=== PATIENT | male | born 1960 | race Caucasian/White ===

== ENCOUNTER 2017-04-08 10:24 | Inpatient (IN) | payer BC ==
[2017-04-08] MEDS ORDERED: ATORVASTATIN 80 MG TAB PO STA (10:41)
[2017-04-08] MEDS ORDERED: ASPIRIN 81 MG PO STA (10:41)
[2017-04-08] MEDS ORDERED: HEPARIN SODIUM,PORCINE 5,000 UNIT/ML 1 ML VIAL IV STA (10:41)
--- NOTE | 2017-04-08 10:45 | ED ---
General Adult HPI - General Chief complaint: Chest Pain Stated complaint: Chest pain Time Seen by Provider: 04/08/17 10:39 Source: patient, family, RN notes reviewed Mode of arrival: wheelchair Limitations: no limitations - History of Present Illness Initial comments: 56-year-old male presenting with chest pain and pressure which began at approximately 8 AM this morning. Patient has history of coronary artery disease status post stenting approximately 10 years ago. Has a family history of coronary artery disease. He is a nonsmoker. Past medical history of hypertension and cholesterol. Pain is nonradiating. He does have some numbness and tingling in his arms bilaterally. No abdominal pain. No vomiting. Patient has had cough and congestion for the past several days. He took an aspirin and 2 sublingual nitro at home prior to arrival. - Related Data Home Medications Medication Instructions Recorded Confirmed Aspirin EC [Ecotrin] 325 mg PO DAILY 04/08/17 04/08/17 Allergies Allergy/AdvReac Type Severity Reaction Status Date / Time lisinopril AdvReac Cough Verified 04/08/17 10:40 Review of Systems ROS Statement: Those systems with pertinent positive or pertinent negative responses have been documented in the HPI. ROS Other: All systems not noted in ROS Statement are negative. Past Medical History Past Medical History: Hyperlipidemia, Hypertension History of Any Multi-Drug Resistant Organisms: None Reported Past Surgical History: Heart Catheterization With Stent, Orthopedic Surgery Past Psychological History: No Psychological Hx Reported Smoking Status: Never smoker Past Alcohol Use History: None Reported Past Drug Use History: None Reported General Exam Limitations: no limitations General appearance: alert, in no apparent distress Head exam: Present: atraumatic, normocephalic Eye exam: Present: normal appearance, PERRL ENT exam: Present: normal exam Neck exam: Present: normal inspection. Absent: tenderness, meningismus Respiratory exam: Present: normal lung sounds bilaterally. Absent: respiratory distress Cardiovascular Exam: Present: regular rate, normal rhythm GI/Abdominal exam: Present: soft. Absent: distended, tenderness Extremities exam: Present: normal inspection, normal capillary refill, other ( Bilateral DP pulses 2+). Absent: pedal edema Neurological exam: Present: alert, oriented X3, CN II-XII intact. Absent: motor sensory deficit Psychiatric exam: Present: normal affect, normal mood Skin exam: Present: warm, dry, intact. Absent: cyanosis, diaphoretic Course Vital Signs 04/08/17 04/08/17 10:27 10:40 Temperature 97.9 F Pulse Rate 82 92 Respiratory 16 18 Rate Blood Pressure 150/76 154/92 O2 Sat by Pulse 100 100 Oximetry EKG Findings - EKG Comments: EKG Findings:: EKG shows sinus rhythm with PAC, ventricular rate 73, NC interval 140, castration 106, QTC 431, there is ST segment elevation in leads 23 and aVF as well as ST segment depression in the precordial leads, and aVL. Medical Decision Making - Medical Decision Making 56-year-old male presenting with typical chest pain, history of CAD EKG shows inferior STEMI. Case discussed with Dr. Gifford. Patient is taken urgently to the [facility] after receiving aspirin and heparin in the emergency department. All labs and x-rays are pending. Disposition Clinical Impression: ST elevation myocardial infarction (STEMI) Disposition: ADMITTED IP TO THIS [facility] Condition: Serious Referrals: Nonstaff,Physician [Primary Care Provider] - 1-2 days Decision to Admit Reason: Admit from [facility] Decision Date: 04/08/17 Decision Time: 10:45
[2017-04-08] MEDS ORDERED: SODIUM CHLORIDE 0.9% 1,000 ML IV ONE (10:54)
[2017-04-08 10:59] LABS: ALT 52 U/L (21-72); AST 27 U/L (17-59); Albumin 4.5 g/dL (3.5-5.0); Alkaline Phosphatase 75 U/L (38-126); Anion Gap 13 mmol/L; Blood Urea Nitrogen 15 mg/dL (9-20); Carbon Dioxide 22 mmol/L (22-30); Chloride 103 mmol/L (98-107); Glucose 106 mg/dL (74-99); Potassium 3.5 mmol/L (3.5-5.1); Sodium 138 mmol/L (137-145); Total Bilirubin 0.8 mg/dL (0.2-1.3); Total Protein 7.2 g/dL (6.3-8.2)
[2017-04-08] MEDS ORDERED: fentaNYL (PF) 50 MCG/ML 2 ML AMP IV ONE (11:00)
[2017-04-08] MEDS ORDERED: LIDOCAINE 2% INJ 20 MG/ML SQ ONE (11:01)
--- NOTE | 2017-04-08 11:03 | XR ---
EXAMINATION TYPE: XR chest 1V portable DATE OF EXAM: 04/08/2017 COMPARISON: NONE HISTORY: Chest pain TECHNIQUE: Single frontal view of the chest is obtained. FINDINGS: There is no focal air space opacity, pleural effusion, or pneumothorax seen. The cardiac silhouette size is within normal limits. The osseous structures are intact. IMPRESSION: No acute cardiopulmonary process.
[2017-04-08 11:07] LABS: INR 1.1 (<1.2); Partial Thromboplastin Time 23.3 sec (22.0-30.0); Prothrombin Time 10.8 sec (9.0-12.0)
[2017-04-08] MEDS ORDERED: BIVALIRUDIN BOLUS 250 MG/50 ML IV ONE ×2 (11:11)
[2017-04-08] MEDS ORDERED: TICAGRELOR 90 MG TAB PO ONE (11:12)
[2017-04-08] MEDS ORDERED: BIVALIRUDIN 250 MG in SODIUM CHLORIDE 0.9% 50 ML IV ONE (11:12)
[2017-04-08] MEDS ORDERED: NITROGLYCERIN 1000MCG/10ML SYRINGE INTRACORON ONE (11:15)
[2017-04-08] MEDS ORDERED: MIDAZOLAM 2 MG/2 ML VIAL IV ONE (11:17)
[2017-04-08 11:20] LABS: Creatine Kinase MB 1.1 ng/mL (0.0-2.4); Troponin I 0.028 ng/mL (0.000-0.034)
[2017-04-08 11:28] LABS: HCT 45.5 % (39.0-53.0); HGB 16.1 gm/dL (13.0-17.5); MCH 31.6 pg (25.0-35.0); MCHC 35.3 g/dL (31.0-37.0); MCV 89.5 fL (80.0-100.0); Platelet Count 314 k/uL (150-450); RBC 5.09 m/uL (4.30-5.90); RDW 12.3 % (11.5-15.5); WBC 10.4 k/uL (3.8-10.6)
--- NOTE | 2017-04-08 11:32 | CONS ---
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 The patient has underwent stenting of his diagonal branch in 2004 in [place]. At that time, he did not have any symptoms of chest discomfort. His activity level usually is stable, but recently he has had bronchitis. He has no dizziness. No palpitation. No syncope. No PND, orthopnea, or peripheral edema. His coronary risk factors are remarkable for hyperlipidemia. He is a nonsmoker. No family history of premature coronary artery disease. He is hypertensive. His medications at home include aspirin, Crestor, and Lopressor. REVIEW OF SYSTEMS: RESPIRATORY SYSTEM: He has the recent bronchitis. No recent fever. He has no history of bronchial asthma. GI SYSTEM: No recent GI bleed. No peptic ulcer disease. SYSTEM: No dysuria or hematuria. NERVOUS SYSTEM: No history of stroke or seizure. PHYSICAL EXAMINATION: He is a 56-year-old male, alert, oriented, in mild discomfort. Blood pressure 130/70 with the heart rate in 70s. HEAD: Normocephalic. EYES: Sclerae anicteric. NECK: Good carotid upstroke. No bruit. No jugular venous distention. LUNGS: Clear to auscultation. HEART: Regular rate and rhythm. S1, S2. No S3. No rub. ABDOMEN: Soft, nontender. Positive bowel sounds. No organomegaly. EXTREMITIES: No edema. Intact distal pulses. LAB DATA: EKG revealed sinus mechanism, rate [address]-segment elevation in the inferior leads. IMPRESSION: 1. Acute inferior myocardial infarction. 2. History of prior stenting of the diagonal branch. 3. History of hyperlipidemia. RECOMMENDATION: I recommend to proceed with emergent cardiac catheterization. The procedure as well as the risks and complications were discussed with the patient who is in full understanding and agreement. Thank you for this consult. We will follow with you. MMODL / IJN: [id number] /
[2017-04-08] MEDS ORDERED: IOHEXOL 350 MG/ML 125ML BOTTLE INJ ONE (11:38)
[2017-04-08] MEDS ORDERED: ATROPINE SULFATE 0.1 MG/ML 10ML SYRINGE IV PRN (11:50)
[2017-04-08] MEDS ORDERED: NITROGLYCERIN SL TABS 0.4 MG TAB SUBLINGUAL PRN (11:50)
[2017-04-08] MEDS ORDERED: MAG HYDROX/AL HYDROX/SIMETH 30 ML CUP PO PRN (11:50)
[2017-04-08] MEDS ORDERED: RX INFO: IV CONTRAST WAS GIVEN 1 EACH MISC MISCELLANE PRN (11:50)
[2017-04-08 11:52] LABS: Eosinophils # (M) 0.21 k/uL (0-0.7); Lymphocytes # (M) 4.06 k/uL (1.0-4.8); Monocytes # (M) 0.62 k/uL (0-1.0); Neutrophils # (M) 5.51 k/uL (1.3-7.7); Neutrophils % (M) 53 %; Nucleated Red Blood Cells 0 /100 WBC (0-0); Total Cells Counted 100
[2017-04-08] MEDS ORDERED: SODIUM CHLORIDE 0.9% 1,000 ML IV SCH (12:00)
[2017-04-08 12:04] LABS: Glucose,Whole Blood 91 mg/dL (75-99)
--- NOTE | 2017-04-08 12:29 | CC ---
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 He came into the emergency room and his EKG was consistent with an inferior wall myocardial infarction. In view of that, recommendation made regarding cardiac catheterization, the procedure as well as the risks and complication were discussed with the patient who is in full understanding and agreement. PROCEDURE: The patient was brought to warehouse general laborer in a fasting semi-sedated state after receiving fentanyl and Benadryl and achieving moderate conscious sedated state. Using Xylocaine anesthesia in the Seldinger technique, a 6-Scottish sheath was introduced in the right femoral artery. Selective right and left angiography were performed using 6-Scottish 4 bend right [place] catheter and 6-Scottish FR4 guiding catheter. Images of the coronary arteries including hemiaxial were obtained. Following that, angioplasty and stenting of the right coronary artery was performed. Following that, a 6-Scottish tight pigtail catheter introduced into the left ventricle and a 30-degree WLECH view of the left ventricle was obtained. Following that, catheter and sheaths were removed. Hemostasis was obtained with deployment of an Angio-Seal. There was no immediate complication. Patient is returned to his room in stable condition. FINDINGS: LEFT MAIN: This is a large-sized vessel bifurcating in the left circumflex and left anterior descending artery. Left main coronary artery distally has a 40% to 50% plaque. The rest of the vessel has no high-degree stenosis. LEFT ANTERIOR DESCENDING ARTERY: This is a large-sized vessel reaching toward the apex with a wraparound apex segment. It gives rise to a large diagonal branch proximally. The diagonal branch is stented. There is intimal disease involving the proximal takeoff of diagonal branch and extending into the stent with area of stenosis up to 80%. The rest of the vessel has no high-grade stenosis. The LAD has mild plaque with area of stenosis of 30% to 40% proximally without any evidence of high-grade stenosis. LEFT CIRCUMFLEX: This is a nondominant vessel giving rise to 2 obtuse marginal branches. The first one is the largest in caliber. The left circumflex obtuse marginal branch proximally has a plaque of 95% stenosis. There is a mild intimal disease in the circumflex beyond that. RIGHT CORONARY ARTERY: This is a large dominant vessel bifurcating in the PDA, posterolateral segment and branches. The right coronary artery proximally has an area of stenosis about 90%. Diffuse intimal disease throughout the course of the vessel and prior to the bifurcation, there is a long plaque extending into the PDA with rare stenosis of 99%. The rest of the vessel has diffuse disease. LEFT VENTRICULOGRAM: Left ventriculogram is performed in 30-degree WELCH view and revealed mild inferobasal hypokinesis. Ejection fraction is estimated at 50%. There was no significant mitral regurgitation. HEMODYNAMICS: There was no gradient across the aortic valve. The left ventricular end- diastolic pressure was 26 mmHg. CONCLUSION: 1. Subtotally occluded distal right coronary artery with significant stenosis in the proximal right coronary artery. 2. Moderate disease in the distal left main. 3. Significant disease in the first obtuse marginal branch. 4. Significant restenosis into the diagonal branch. 5. Minimally impaired left ventricular systolic function. RECOMMENDATION: In view of finding anatomy, I have recommended proceeding with angioplasty and stenting of the right coronary artery. The procedure as well as the risks and the complications were discussed with the patient who is in full understanding and agreement. MMODL / IJN: [id number] /
--- NOTE | 2017-04-08 12:32 | PTCA ---
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 In view of that, recommendation was made regarding coronary angioplasty and stenting. The procedure as well as risks and complications were discussed with the patient who is in full understanding and agreement. PROCEDURE: Using the 6-Eritrean FR4 guiding catheter, a 0.014 balanced medium weight J-wire was advanced across the lesion, positioned distally. Then a 2.25 x 12 mm Trek balloon was advanced and multiple inflation were done distally and one inflation in the proximal segment. Following that, the balloon was removed and a 2.5 x 18 mm Xience Alpine stent was deployed into the distal right coronary artery extending into the PDA and post dilated at 12 atmospheres. Following that, the balloon was removed and a 3.0 x 15 mm Xience Alpine stent was deployed proximal to the first stent and post dilated at 14 atmospheres. Following that, the balloon was removed and a 2.75 x 12 mm Trek balloon was advanced and inflation into the distal stent was performed. Following that, the balloon was removed and a 3.5 x 18 mm Xience Alpine stent was deployed proximally and post dilated at 16 atmospheres. After the last inflation, after appropriate wait, the balloon and the guidewire were withdrawn back in the guiding catheter. Images were obtained and repeated. Those images reveal stable successful stenting. At that point, the guiding catheter, the balloon and the guidewire were removed and a 6-Eritrean tight pigtail catheter was left ventricle and a 30-degree WELCH view of the left ventricle was obtained. Following that, the catheter and sheath were removed. Hemostasis was obtained with deployment of an Angio-Seal. There was no immediate complication. Patient is returned to his room in stable condition. Of note, the patient received Angiomax per protocol as well as oral loading dose of Brilinta. His pain has resolved at the end of the procedure and there was no significant EKG changes. RESULTS: 1. Successful stenting of the distal right coronary artery with reduction of stenosis from 99% to 0%. 2. Successful stenting of the proximal right coronary artery with reduction of stenosis from 90% to less than 5%. RECOMMENDATION: Patient will be continued on aspirin, Brilinta, beta blockers, angiotensin receptor eileen and statin. The importance of dual antiplatelet treatment were discussed with the patient and his family who are in full understanding and agreement. The patient will need to be re-evaluated at a later time by his physician in [place] regarding the need to undergo revascularization of his left circumflex and probably diagonal branch. Those findings and recommendations were discussed with the patient and his family. Duration of procedure is 45 minutes. MMVERONICA / IJN: [id number] /
[2017-04-08] MEDS: METOPROLOL TARTRATE 25 MG TAB PO SCH ×2 (12:53→20:06)
[2017-04-08] MEDS ORDERED: Potassium Replacement Protocol 1 EACH MISC MISCELLANE PRN (13:51)
[2017-04-08] MEDS: POTASSIUM CHLORIDE ER 20 MEQ TAB.ER PO SCH ×2 (14:09→15:00)
[2017-04-08 15:15] VITALS: BMI 24.4
[2017-04-08] MEDS: ATORVASTATIN 80 MG TAB PO SCH (20:06)
[2017-04-08] MEDS: TICAGRELOR 90 MG TAB PO SCH (20:06)
[2017-04-08] MEDS: ZOLPIDEM 5 MG TAB PO PRN (23:30)
[2017-04-09 05:29] LABS: Anion Gap 11 mmol/L; Blood Urea Nitrogen 13 mg/dL (9-20); Calcium 9.2 mg/dL (8.4-10.2); Carbon Dioxide 22 mmol/L (22-30); Chloride 108 mmol/L (98-107); Cholesterol 81 mg/dL (<200); Glucose 96 mg/dL (74-99); HDL Cholesterol 25 mg/dL (40-60); LDL Cholesterol,Calculated 42 mg/dL (0-99); Potassium 4.4 mmol/L (3.5-5.1); Sodium 141 mmol/L (137-145); Triglycerides 70 mg/dL (<150)
[2017-04-09] MEDS: TICAGRELOR 90 MG TAB PO SCH ×2 (08:56→20:29)
[2017-04-09] MEDS: ASPIRIN 81 MG PO SCH (08:56)
[2017-04-09] MEDS: METOPROLOL TARTRATE 25 MG TAB PO SCH ×2 (08:56→20:29)
[2017-04-09] MEDS: LOSARTAN 50 MG TAB PO SCH (08:58)
--- NOTE | 2017-04-09 10:39 | CONS ---
CONSULTATION DATE OF CONSULTATION: 04/09/2017 HISTORY: Mr. Bey is a 56-year-old male who presented with an acute inferior wall myocardial infarction. Underwent cardiac catheterization and stenting of the right coronary artery. He is pain-free this morning. He denies any chest pain. His breathing is stable. No dizziness. No palpitation. He continued to be in sinus mechanism without any evidence of tachy or lowell arrhythmia. He continued to be on aspirin once a day, Brilinta 80 mg twice a day, Lipitor 80 mg daily, losartan 50 mg daily, metoprolol tartrate 25 mg twice a day. PHYSICAL EXAMINATION: Blood pressure 131/80 with a heart in the 70s. LUNGS: Clear heart exam S1, S2. No S3. No rub. ABDOMEN: Soft, nontender. EXTREMITIES: No edema. Right groin no hematoma. LAB DATA: Lab data revealed BUN and creatinine 13 and 0.8. His troponin is up to 5.1. His EKG revealed evidence of inferior wall myocardial infarction. IMPRESSION: 1. Status post stenting of the right coronary artery. 2. Diffuse coronary disease. 3. Hypertension. 4. Hyperlipidemia. RECOMMENDATIONS: From the cardiac standpoint, he will be transferred to telemetry floor today. His level of activity will be increased. Depending on his progress, further recommendations will be made. MMODL / IJN: [id number] /
[2017-04-09] MEDS ORDERED: ACETAMINOPHEN TAB 325 MG TAB PO PRN (15:10)
[2017-04-09] MEDS: ATORVASTATIN 80 MG TAB PO SCH (20:29)
[2017-04-09] MEDS: guaiFENesin-DM 100-10MG/5ML 10 ML CUP PO PRN (21:18)
[2017-04-09] MEDS: ZOLPIDEM 5 MG TAB PO PRN (23:28)
[2017-04-10 03:46] VITALS: RESP 16
[2017-04-10 06:34] LABS: Anion Gap 10 mmol/L; Blood Urea Nitrogen 18 mg/dL (9-20); Calcium 9.3 mg/dL (8.4-10.2); Carbon Dioxide 25 mmol/L (22-30); Chloride 106 mmol/L (98-107); Glucose 98 mg/dL (74-99); Potassium 4.3 mmol/L (3.5-5.1); Sodium 141 mmol/L (137-145)
[2017-04-10] MEDS: TICAGRELOR 90 MG TAB PO SCH (08:33)
[2017-04-10] MEDS: METOPROLOL TARTRATE 25 MG TAB PO SCH (08:33)
[2017-04-10] MEDS: ASPIRIN 81 MG PO SCH (08:33)
[2017-04-10] MEDS: LOSARTAN 50 MG TAB PO SCH (08:33)
[2017-04-10] MEDS: guaiFENesin-DM 100-10MG/5ML 10 ML CUP PO PRN (08:59)
--- NOTE | 2017-04-10 09:31 | PN ---
PROGRESS NOTE [place] is a 56-year-old male who presented with an acute inferior myocardial infarction, underwent angioplasty and stenting of the right coronary artery, has disease in the left coronary system. He is doing well this morning. He is denying any chest pain. His breathing has been stable. He denies any dizziness or palpitation. He denies any syncope. Continues to be on aspirin once a day, Lipitor 80 mg daily, losartan 50 mg daily, metoprolol tartrate 25 mg twice a day, Brilinta 90 mg twice a day. PHYSICAL EXAMINATION: Blood pressure 110/60 with a heart rate in the 60s. LUNGS: Clear. Regular rate and rhythm, S1, S2. No S3. No rub. ABDOMEN: Soft, nontender. EXTREMITIES: No edema. LAB DATA: BUN and creatinine of 18 and 0.9. IMPRESSION: 1. Status post inferior myocardial infarction with stenting of the right coronary artery. 2. Coronary artery disease involving the diagonal branch and the left circumflex. 3. History of hypertension. 4. Hyperlipidemia. RECOMMENDATIONS: From the cardiac standpoint, he should be able to be discharged home today and follow up with his primary care physician and follow up in [place]. MMODL / IJN: [id number] /
[2017-04-10 10:04] VITALS: BP 125/79; PULSE 69; TEMP 96.4
--- NOTE | 2017-04-11 08:46 | ECHOF ---
Referral Reason:mi MEASUREMENTS -------- HEIGHT: 182.9 cm WEIGHT: 81.7 kg BP: 114/71 IVSd: 1.4 cm (0.6 - 1.1) LVIDd: 3.2 cm (3.9 - 5.3) LVPWd: 1.3 cm (0.6 - 1.1) IVSs: 1.8 cm LVIDs: 1.8 cm LVPWs: 2.3 cm Ao Diam: 3.4 cm (2.0 - 3.7) AV Cusp: 1.6 cm (1.5 - 2.6) LA Diam: 2.7 cm (2.7 - 3.8) MV EXCURSION: 19.783 mm (> 18.000) MV EF SLOPE: 109 mm/s (70 - 150) EPSS: 0.9 cm MV E Dom: 0.69 m/s MV DecT: 182 ms MV A Dom: 0.50 m/s MV E/A Ratio: 1.38 RAP: 5.00 mmHg RVSP: 9.86 mmHg FINDINGS -------- Sinus rhythm. Patient is post cardiac catheterization and cannot be in left lateral position. The left ventricular size is normal. There is mild concentric left ventricular hypertrophy. Overa ll left ventricular systolic function is normal with, an EF between 55 - 60 %. The right ventricle is normal in size and function. The left atrium is normal in size. The right atrium is normal in size. The aortic valve is trileaflet, and appears structurally normal. No aortic stenosis or regurgitation. There is trace mitral regurgitation. Trace tricuspid regurgitation present. The right ventricular systolic pressure, as measured by Dopp ler, is 9.86mmHg. Pulmonic valve appears structurally normal. The aortic root size is normal. The pericardium is normal. CONCLUSIONS -------- 1. Sinus rhythm. 2. Patient is post cardiac catheterization and cannot be in left lateral position. 3. The left ventricular size is normal. 4. There is mild concentric left ventricular hypertrophy. 5. Overall left ventricular systolic function is normal with, an EF between 55 - 60 %. 6. The right ventricle is normal in size and function. 7. The left atrium is normal in size. 8. The right atrium is normal in size. 9. The aortic valve is trileaflet, and appears structurally normal. No aortic stenosis or regurgitati on. 10. There is trace mitral regurgitation. 11. Trace tricuspid regurgitation present. 12. The right ventricular systolic pressure, as measured by Doppler, is 9.86mmHg. 13. Pulmonic valve appears structurally normal. 14. The aortic root size is normal. 15. The pericardium is normal. HYDRAULICS ENGINEER: Ciara Avalos RDCS
--- NOTE | 2017-04-24 21:51 | HP ---
HISTORY AND PHYSICAL SUBJECTIVE: A 56-year-old white male presented with chest. HISTORY OF PRESENT ILLNESS: 56-year-old white male who has a history of coronary disease with stenting 10 years ago. He is a nonsmoker. He has past medical history of hypertension, hypercholesterolemia. Pain was nonradiating. He has had some cough, congestion for several days. Aspirin and sublingual nitro has been ordered. HOME MEDICINES: Ecotrin 325 daily. ALLERGIES: LISINOPRIL. REVIEW OF SYSTEMS: Fourteen point review of systems negative except for mentioned in HPI. PAST MEDICAL HISTORY: Dyslipidemia, hypertension, heart catheterization with stent, orthopedic surgery. SOCIAL HISTORY: No smoking. No alcohol. No illicit drugs. PHYSICAL EXAM: Vital signs stable and vascular S1, S2. LUNGS: Clear. GI soft> hematology negative Homans. Psych fair mood and affect. Ophthalmological: Pupils equal, round, reactive to light and accommodation. NEUROLOGIC: Alert and oriented x3. Psych: Fair mood and affect. EKG sinus rhythm. ASSESSMENT: ST elevation myocardial infarction, atypical chest pain with Cardiology consult. Typical myocardial infarction treatment. Follow up in the next 24-48 hours time. MMODL / IJN: [id number] /
--- NOTE | 2017-05-16 00:45 | DS ---
DISCHARGE SUMMARY DISCHARGE MEDICATIONS: 1. Aspirin 325 mg daily. 2. Norvasc 2.5 mg daily. 3. Crestor 20 mg daily. 4. Zetia 10 mg daily. 5. Losartan 100 mg daily. 6. HydroDIURIL 25 mg daily. 7. Co-enzyme Q10, 100 mg daily. 8. Brent-3 fatty acids 1 cap daily. 9. Aspirin 81 mg daily. 10.Cozaar 50 mg daily. 11.Metoprolol 25 b.i.d. 12.Nitroglycerin sublingual p.r.n. 13.Brilinta 90 mg b.i.d. PROCEDURES PERFORMED: Cardiac catheterization. HISTORY: He came into the hospital with atypical chest discomfort. EKG was consistent with an inferior wall myocardial infarction. Cardiology prepped him and took him for cardiac catheterization. His left main was found to have a 40% to 50% obstruction, LAD 30% to 40% obstruction. He had stenosis of the proximal right coronary artery disease, distal left main, significant disease first obtuse marginal. Stenosis of the diagonal branch. The patient underwent angioplasty and stenting of his right coronary artery. The risks and complications were understood. Patient stabilized postop and was sent home in stable condition. Follow up with field research assistant. Medications as mentioned above. MMODL / IJN: [id number] /
== END 2017-04-10 14:03 | disposition home or self-care (01) | DRG 247 ==
LOC: EC 10:24 → 6ICU 10:51 → 6SEL 04-09 23:24
PROVIDERS: ADMIT Family Medicine; ATTEND Family Medicine
PROC: B2151ZZ Fluoroscopy of Left Heart using Low Osmolar Contrast (ICD-10-PCS; 2017-04-08)
PROC: 027036Z Dilation of Coronary Artery, One Artery with Three Drug-eluting Intraluminal Devices, Percutaneous Approach (ICD-10-PCS; principal; 2017-04-08 10:48)
PROC: B2111ZZ Fluoroscopy of Multiple Coronary Arteries using Low Osmolar Contrast (ICD-10-PCS; 2017-04-08 10:48)
DX: I21.19 ST elevation (STEMI) myocardial infarction involving other coronary artery of inferior wall (principal); T82.855A Stenosis of coronary artery stent, initial encounter; E78.5 Hyperlipidemia, unspecified; I10 Essential (primary) hypertension; I25.10 Atherosclerotic heart disease of native coronary artery without angina pectoris; Z82.49 Family history of ischemic heart disease and other diseases of the circulatory system; Z79.82 Long term (current) use of aspirin; Z79.899 Other long term (current) drug therapy; Z95.5 Presence of coronary angioplasty implant and graft; Z88.8 Allergy status to other drugs, medicaments and biological substances; Y84.0 Cardiac catheterization as the cause of abnormal reaction of the patient, or of later complication, without mention of misadventure at the time of the procedure
CPT/HCPCS: 36415; 71045; 80048; 80053; 80061; 82550; 82553; 84484; 85025; 85347; 85610; 85730; 93005; 93306; 93458; 96374; 99285